=== PATIENT | male | born 1950 | race African-American/Black ===

== ENCOUNTER 2016-11-23 08:45 | Outpatient (RCR) | payer MEDICARE, MEDICAID ==
[~2016-11-23 08:45] MED LIST: ACETAMINOPHEN-1 EAC2 ORAL; BACTRIM DS TAB1 EAC1 ORAL; CLOTRIMAZOLE-BE15 GM TP; CYCLOBENZAPRINE10 MG ORAL; KEFLEX500 MG ORAL; PREDNISONE20 MG ORAL; TYLENOL650 MG/20. ORAL; VISTARIL25 MG ORAL
== END 2016-12-08 | disposition home or self-care (01) ==
LOC: PTY 08:45
DX: M25.569 Pain in unspecified knee (principal)
CPT/HCPCS: 97110; 97161; G0283; G8978; G8979

== ENCOUNTER 2016-12-11 09:20 | Outpatient (RCR) | payer MEDICARE, MEDICAID | END 2017-01-07 | disposition home or self-care (01) | LOC: PTY 09:20 | DX: M25.569 Pain in unspecified knee (principal) | CPT/HCPCS: 97110; G0283 ==

== ENCOUNTER 2017-01-15 09:30 | Outpatient (RCR) | payer MEDICARE, MEDICAID | END 2017-02-07 | disposition home or self-care (01) | LOC: PTY 09:30 | DX: M25.569 Pain in unspecified knee (principal) | CPT/HCPCS: 97110; 97162; G0283; G8978; G8979 ==